=== PATIENT | male | born 1950 | race Caucasian/White ===

== ENCOUNTER 2017-08-30 22:01 | Emergency (ER) | payer MEDICARE ==
[~2017-08-30] VITALS: Ht 182.9 cm; Wt 98.5 kg
[~2017-08-30 22:01] MED LIST: CEPH500 PO; SULF1TAB47 PO; Z.0.NO CURRENT MEDS
[2017-08-30 22:24] VITALS: BP 155/89; PULSE 75; RESP 16; TEMP 98.5; O2SAT 97
--- NOTE | 2017-08-31 01:11 | PD ---
HPI Chief Complaint: Edema Time Seen by Provider: 01:04 Travel History International Travel<30 days: No Contact w/Intl Traveler<30days: No Traveled to known affect area: No History of Present Illness HPI The patient is a 67-year-old male that complains of pain and redness along the superficial veins of the left leg for the past week. He does have a history of varicose veins. He does not have a history of DVT. He denies any shortness of breath, chest pain, hemoptysis, fever, syncope or near syncopal spells. He states the stone crab pinched one of the vessels of the left leg and it got infected with cellulitis and he had to have some vein stripping done on his left leg. His left leg is now smaller than his right leg. PFSH Past Medical History Diminished Hearing: No GERD: Yes Tetanus Vaccination: < 5 Years Influenza Vaccination: Yes Past Surgical History Other Surgery: Yes (vein stripping L leg ) Social History Alcohol Use: Yes ("periodically") Tobacco Use: No Substance Use: No Allergies-Medications (Allergen,Severity, Reaction): Coded Allergies: No Known Allergies (Verified Adverse Reaction, Unknown, 08/31/17) Reported Meds & Prescriptions Reported Meds & Active Scripts Active No Active Prescriptions or Reported Medications Review of Systems Except as stated in HPI: all other systems reviewed are Neg Physical Exam Narrative GENERAL: The patient is alert, oriented 3 in slight apparent distress with his left leg discomfort. His vital signs show blood pressure 155/89 but otherwise normal. SKIN: Focused skin assessment warm/dry. Medially on the left leg across the knee there is an area of phlebitis that extends from the proximal lower leg to the distal upper leg about 10 cm above the knee. No cord is palpated in the calf and Homans sign is negative HEAD: Atraumatic. Normocephalic. EYES: Pupils equal and round. No scleral icterus. No injection or drainage. ENT: No nasal bleeding or discharge. Mucous membranes pink and moist. NECK: Trachea midline. No JVD. CARDIOVASCULAR: Regular rate and rhythm. No murmur appreciated. RESPIRATORY: No accessory muscle use. Clear to auscultation. Breath sounds equal bilaterally. GASTROINTESTINAL: Abdomen soft, non-tender, nondistended. Hepatic and splenic margins not palpable. MUSCULOSKELETAL: No obvious deformities. No clubbing. No cyanosis. No edema. No cord is palpated on the calf and Homans sign is negative. NEUROLOGICAL: Awake and alert. No obvious cranial nerve deficits. Motor grossly within normal limits. Normal speech. PSYCHIATRIC: Appropriate mood and affect; insight and judgment normal. Data Data Last Documented VS Vital Signs Date Time Temp Pulse Resp B/P (MAP) Pulse Ox O2 Delivery O2 Flow Rate FiO2 08/31/17 01:31 74 18 150/78 (102) 97 Room Air 08/30/17 22:24 98.5 Orders Orders Us Leg Venous Doppler (08/31/17 01:08) MDM Medical Decision Making Medical Screen Exam Complete: Yes Emergency Medical Condition: Yes Medical Record Reviewed: Yes Interpretation(s) The ultrasound does not show any DVT, it shows superficial thrombophlebitis in the veins of the medial calf. Differential Diagnosis Superficial thrombophlebitis, DVT, cellulitis Narrative Course The patient has superficial thrombophlebitis. Diagnosis Primary Impression: Superficial thrombophlebitis Additional Instructions: Take a 325 mg aspirin daily. Use a heating pad on as well as setting an interposed a towel between your skin and the pad. Elevate your left leg above your heart. And take the antibiotics, both of which are one twice daily for 10 days. Follow-up next week with her primary care physician. Med/Other Pt SpecificInfo: Prescription(s) given Scripts Doxycycline Hyclate (Doxycycline Hyclate) 100 Mg Cap 100 MG PO BID for Infection, #20 CAP 0 Refills Prov: Deon Ortega MD 08/31/17 Sulfamethoxazole-Trimethoprim (Bactrim DS) 800-160 Mg Tab 1 TAB PO BID for Infection, #20 TAB 0 Refills Prov: Deon Ortega MD 08/31/17 Disposition: 01 DISCHARGE HOME Condition: Stable Deon Ortega MD Aug 31, 2017 01:11
[2017-08-31 01:31] VITALS: BP 150/78; PULSE 74; RESP 18; O2SAT 97
--- NOTE | 2017-08-31 03:46 | RADRPT ---
EXAM DATE/TIME: 08/31/2017 03:18 [facility] COMPARISON: No previous studies available for comparison. INDICATIONS : Left leg swelling. MEDICAL HISTORY : Gastroesophageal reflux disease. SURGICAL HISTORY : Left shoulder surgery. Left leg vein stripping. ENCOUNTER: Initial ACUITY: 1 day PAIN SCORE: 2/10 LOCATION: Left leg. TECHNIQUE: Venous ultrasound of the leg was performed from the inguinal ligament to the proximal calf. Real-sabrina e, color Doppler and spectral tracing, compression and augmentation techniques were used. FINDINGS: There is normal compressibility of the deep venous system from the inguinal region to the proximal ca lf. No echogenic clot is seen in the lumen of the common femoral, femoral, popliteal, and posterior tibial veins. There is a normal response of the venous system to proximal and distal augmentation an d respiration. There is some superficial phlebitis with thrombus and some superficial veins along th e left medial calf. CONCLUSION: 1. No evidence of DVT. 2. Superficial thrombophlebitis involving some superficial veins along the medial calf. Fausto Cast MD on August 31, 2017 at 3:42 Board Certified Radiologist. This report was verified electronically.
[2017-08-31] MEDS ORDERED: DOXY100C PO (03:52)
[2017-08-31] MEDS ORDERED: BACT800T5 PO (03:52)
[2017-08-31] MEDS ORDERED: SULFAMETHOXAZOLE-TRIMETHOPRIM DS 800-160 MG TAB PO ONE (04:00)
[2017-08-31] MEDS ORDERED: DOXYCYCLINE HYCLATE 100 MG CAP PO ONE (04:00)
[2017-08-31 04:05] VITALS: BP 148/85; PULSE 84; RESP 18; O2SAT 98
== END 2017-08-31 04:07 | disposition home or self-care (01) ==
LOC: PHED 22:01
DX: I80.02 Phlebitis and thrombophlebitis of superficial vessels of left lower extremity (principal); Z87.19 Personal history of other diseases of the digestive system
CPT/HCPCS: 93971; 99284